=== PATIENT | male | born 1980 | race Caucasian/White ===

== ENCOUNTER → 2024-02-11 09:02 | Outpatient (BNVA) | payer OTHER, SELFPAY | PROVIDERS: PCP Family Medicine; Visit Provider Physician Assistant Medical | DX: S63.635A Sprain of interphalangeal joint of left ring finger, initial encounter (principal); Y04.2XXA Assault by strike against or bumped into by another person, initial encounter | CPT/HCPCS: 73140; 99203 ==

== ENCOUNTER → 2024-02-18 11:17 | Outpatient (BNVA) | payer OTHER, SELFPAY | PROVIDERS: PCP Family Medicine; Visit Provider Physician Assistant Medical | DX: S63.635D Sprain of interphalangeal joint of left ring finger, subsequent encounter (principal); Y04.2XXD Assault by strike against or bumped into by another person, subsequent encounter | CPT/HCPCS: 99213 ==